=== PATIENT | female | born 1990 | race Caucasian/White ===

== ENCOUNTER 2018-11-19 08:54 | Inpatient (IN) ==
[2018-11-19] MEDS ORDERED: OXYTOCIN 30 UNITS/500 ML BAG IV PRN ×2 (09:10→18:26)
--- NOTE | 2018-11-19 09:24 | History & Physical Report ---
Date of Service November 19, 2018 Assessment & Plan (1) 40 weeks gestation of : fetus category one. allow expectant management for now. arom/pit if indicated. efw 8-9#, anticipate . (2) Elevated blood pressure affecting in third trimester, antepartum: I suspect pressures are elevated secondary to anxiety. They are slowly coming down. check labs. If pressures remain elevated, plan to treat. Will continue to monitor closely. History of Present Illness Chief Complaint: contractions Primary Care Provider: Radha Chavez DO Patient is a with iup at 40 weeks by lmp c/w first trimester ultrasound who presents to labor and delivery with increasing contractions. was last in the office. Patient notes no vb/lof. +fm. She admits to intermittent doll and some nausea. no vision changes, no ruq pain and improved swelling. complicated by proteinuria in the third trimester of no greater than +1. BPs have been excellent. labs--O+/ab-/pap nl/ri/rprnr/hiv-/hepb-/gc/ct-/gtt x 2 nl/gbs neg Patient obviously not taking control pills as per meds. 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
[2018-11-19 09:47] LABS: Hematocrit (blood only) 35.5 % (37-47); Hemoglobin 11.8 g/dL (12.0-16.0); Mean Corpuscular Volume 84.7 fL (80-100); RDW Coefficient of Variation 14.1 % (11.5-14.5); RDW Standard Deviation 43.3 fL (36.4-46.3); Red Blood Count 4.19 M/uL (4.2-5.4); White Blood Count 10.78 K/uL (4.8-10.8)
[2018-11-19 10:03] LABS: Mean Corpuscular Hgb Conc 33.2 g/dL (32-36); Mean Platelet Volume 13.4 fL (7.4-10.4); Platelet Count 139 K/uL (130-400); Platelet Estimate Normal (Normal)
[2018-11-19 10:17] LABS: Albumin Level 2.6 gm/dl (3.4-5.0); BUN Creatinine Ratio 13.7 (10-20); Calcium 8.5 mg/dl (8.5-10.1); Creatinine Clr Calc Pharmacy 137.7 ml/min; Est GFR (African American) 133.4; Est GFR (Non-African American) 115.1; Potassium 3.5 mmol/L (3.5-5.1)
[2018-11-19 10:20] LABS: Albumin Globulin Ratio 0.7 (0.9-2); Bilirubin,Total 0.8 mg/dl (0.2-1); Globulin 3.7 gm/dl (2.5-4.0); Total Protein 6.3 gm/dl (6.4-8.2)
--- NOTE | 2018-11-19 12:12 | Labor Progress Brief Note ---
Date of Service November 19, 2018 Subjective tolerating contractions and walking. no s/s of pet Assessment & Plan (1) Gestational hypertension affecting first : labs nl, continue to monitor closely (2) 40 weeks gestation of : check at 2pm and then likely arom. Physical Exam Constitutional: WD/WN, vitals as above bps 130-140/80-90 Genitourinary: cx--deferred toco--irregular efm--category one Results & Data Vital Signs (Past 12 Hours) Vital Signs Temp Pulse Resp BP 11/19/18 12:06 88 132/87 11/19/18 11:58 82 138/95 11/19/18 11:48 79 140/91 11/19/18 11:38 85 136/86 11/19/18 11:28 82 154/92 H 11/19/18 10:29 85 142/94 H 11/19/18 10:24 92 H 137/92 11/19/18 10:20 86 139/90 11/19/18 10:14 88 138/92 11/19/18 10:09 91 H 141/81 H 11/19/18 10:07 88 135/87 11/19/18 10:00 82 137/101 H 11/19/18 09:54 83 137/97 11/19/18 09:50 86 138/95 11/19/18 09:44 92 H 145/100 H 11/19/18 09:39 83 143/102 H 11/19/18 09:34 86 141/98 H 11/19/18 09:29 97 H 150/94 H 11/19/18 09:28 36.8 C 18 150/94 H 11/19/18 09:24 90 149/96 H 11/19/18 09:20 90 142/92 H 11/19/18 09:14 93 H 143/102 H 11/19/18 09:09 93 H 160/110 H 11/19/18 09:07 101 H 160/105 H 11/19/18 09:02 101 H 143/101 H 11/19/18 09:01 104 H 141/101 H
[2018-11-19] MEDS: LACTATED RINGER'S 1,000 ML IV PRN ×2 (14:18→15:09)
--- NOTE | 2018-11-19 14:19 | Labor Progress Brief Note ---
Date of Service November 19, 2018 Subjective noting some contractions, declines epidural at this point. Assessment & Plan (1) Gestational hypertension affecting first : continue to monitor pressures closely 130-150/80-102 (2) 40 weeks gestation of : continue expectant management. epidural on demand. anticipate . Physical Exam 2 Constitutional: WD/WN, vitals as above Genitourinary: cx--5-6/100/-2 arom--small amount of blood tinged fluid toco--q3-5 min efm--130s wtih mod variability, accels to 160s, no decels. Results & Data Vital Signs (Past 12 Hours) Vital Signs Temp Pulse Resp BP 11/19/18 14:11 96 H 146/102 H 11/19/18 14:09 92 H 142/101 H 11/19/18 14:08 90 145/103 H 11/19/18 14:04 36.4 C L 18 11/19/18 14:03 106 H 139/89 11/19/18 13:30 82 140/94 11/19/18 13:20 74 141/93 H 11/19/18 13:11 81 150/92 H 11/19/18 12:59 76 139/89 11/19/18 12:06 88 132/87 11/19/18 12:00 36.7 C 18 11/19/18 11:58 82 138/95 11/19/18 11:48 79 140/91 11/19/18 11:38 85 136/86 11/19/18 11:28 82 154/92 H 11/19/18 10:29 85 142/94 H 11/19/18 10:24 92 H 137/92 11/19/18 10:20 86 139/90 11/19/18 10:14 88 138/92 11/19/18 10:09 91 H 141/81 H 11/19/18 10:07 88 135/87 11/19/18 10:00 82 137/101 H 11/19/18 09:54 83 137/97 11/19/18 09:50 86 138/95 11/19/18 09:44 92 H 145/100 H 11/19/18 09:39 83 143/102 H 11/19/18 09:34 86 141/98 H 11/19/18 09:29 97 H 150/94 H 06/24/19 09:28 36.8 C 18 150/94 H 11/19/18 09:24 90 149/96 H 11/19/18 09:20 90 142/92 H 11/19/18 09:14 93 H 143/102 H 11/19/18 09:09 93 H 160/110 H 11/19/18 09:07 101 H 160/105 H 11/19/18 09:02 101 H 143/101 H 11/19/18 09:01 104 H 141/101 H
[2018-11-19] MEDS ORDERED: LABETALOL HCL IV 5 MG/ML 20ML IV STA (14:41)
[2018-11-19] MEDS ORDERED: ePHEDrine sulfate 50 MG/ML AMP ONE (14:43)
[2018-11-19] MEDS ORDERED: BUPIVACAINE 0.25% 30 ML VIAL ONE (14:43)
[2018-11-19] MEDS ORDERED: fentaNYL citrate 100 MCG/2 ML VIAL ONE (14:44)
[2018-11-19] MEDS ORDERED: fentaNYL 2MCG/ML ROPIV 1.25MG/ML 100 ML BAG EPI ONE (14:44)
--- NOTE | 2018-11-19 14:44 | Communication Note ---
Date of Service: November 19, 2018 After arom, patient quickly became very painful and her pressures have elevated likely in response to this. Will treat with labetolol and get epidural. Then will reevaluate.
--- NOTE | 2018-11-19 15:50 | Anesthesiology Consultation ---
Date of Service November 19, 2018 Assessment & Plan (1) Encounter for pre-operative examination: Chart Review Chart Review: Patient NOT seen in Pre Admission Testing and Acceptable Risk for Labor Epidural Consults Requested none ASA ASA2 Proposed Anesthesia Anesthesia Type: Labor Epidural History Height/Weight Height: 5 ft 8 in Weight: 90.718 kg Allergies Allergy/AdvReac Type Severity Reaction Status Date / Time No Known Allergies Allergy Verified 11/19/18 09:32 Medications Home Medications Medication Instructions Recorded Confirmed Last Taken vit-iron fum-folic ac 1 tab PO DAILY 11/19/18 11/19/18 11/19/18 07:00 [ Vitamin] Active Medications Generic Name Dose Route Start Last Admin Trade Name Freq PRN Reason Stop Dose Admin Lactated Ringer's 1,000 mls @ 125 mls/hr 11/19/18 09:10 11/19/18 15:09 Lr IV 11/21/18 09:09 999 mls/hr .Q8H PRN Administration L&D Protocol Protocol Past Medical History Medical History History of varicella Kidney stones Pyelonephritis Past Surgical History Surgical History [place] teeth extracted Social History Smoking Status: Never smoker Do You Dip or Chew Tobacco: No Hx Alcohol Use: No Hx Substance Use: No substance use type: does not use Physical Exam Vital Signs Last Vital Signs Temp 36.4 C L 11/19/18 14:04 Pulse 78 11/19/18 15:45 Resp 18 11/19/18 14:04 BP 127/89 11/19/18 15:45 Pulse Ox 98 11/19/18 15:42 Testing Laboratory Results 11/19/18 09:23 11/19/18 09:23
[2018-11-19] MEDS ORDERED: ONDANSETRON INJ 2 MG/ML 2 ML VIAL IV PRN (15:54)
[2018-11-19] MEDS ORDERED: NALBUPHINE HCL INJ 10 MG/ML AMP IV PRN (15:54)
[2018-11-19] MEDS ORDERED: NALOXONE HCL 0.4 MG/1 ML VIAL/CARP IV PRN (15:54)
[2018-11-19] MEDS ORDERED: DiphenhydrAMINE HCL 50 MG/ML VIAL IV PRN (15:54)
[2018-11-19] MEDS ORDERED: ePHEDrine sulfate 50 MG/ML AMP IV PRN (15:54)
[2018-11-19] MEDS ORDERED: NALOXONE HCL 1 MG in SODIUM CHLORIDE 0.9% 1000ML 1,000 ML IV PRN (15:54)
[2018-11-19] MEDS ORDERED: fentaNYL 2MCG/ML ROPIV 1.25MG/ML 100 ML BAG EPI PRN (15:54)
[2018-11-19] MEDS ORDERED: ACETAMINOPHEN 325 MG TAB PO PRN (18:09)
[2018-11-19] MEDS ORDERED: OXYCODONE/ACETAMINOPHEN 5mg/325mg TAB PO PRN (18:09)
[2018-11-19] MEDS ORDERED: HYDROCORTISONE ACETATE 25 MG SUPP PR PRN (18:26)
[2018-11-19] MEDS ORDERED: BISACODYL 10 MG SUPP PR PRN (18:26)
[2018-11-19] MEDS ORDERED: SUPERCREAM 0.870% 15 GM JAR EXT PRN (18:26)
[2018-11-19] MEDS ORDERED: DIPHTHERIA/TETANUS/PERTUSSIS 0.5 ML SYR/VIAL IM ONE (18:26)
[2018-11-19] MEDS ORDERED: BENZOCAINE 20% AER SPR 82.5 GM CAN EXT PRN (18:26)
--- NOTE | 2018-11-19 19:58 | Delivery Summary ---
DATE OF OPERATION: 11/19/2018 DATE OF DELIVERY: 11/19/2018 PREOPERATIVE DIAGNOSES: 1. Intrauterine at 40 and 0/7 weeks. 2. Gestational hypertension. 3. Normal labor. POSTOPERATIVE DIAGNOSES: 1. Intrauterine at 40 and 0/7 weeks. 2. Gestational hypertension. 3. Normal labor. PROCEDURES: 1. Amniotomy for clear fluid. 2. Epidural anesthetic. 3. Normal spontaneous vaginal delivery. 4. Right labial laceration and small vaginal laceration with repair. SURGEON: Janice Esposito MD ANESTHESIA: Epidural. ESTIMATED BLOOD LOSS: 350 mL. PROCEDURE: The patient presented to labor and delivery in early active labor. She did have some elevated blood pressures, but that did not meet the criteria for severe, but likely gestational hypertension and so she was kept. She walked for a little while, did not make any change and then had an amniotomy for clear fluid. Her pain became very severe and she had a blood pressure of 177/107. I suspect this was secondary to acute pain, but she was treated nonetheless with 10 mg of labetalol. She received her epidural and then her pressures were good after that. She progressed to complete-complete and +2 station. She pushed effectively to deliver a viable male in [place] presentation. There was no nuchal cord. The nose and mouth were bulb suctioned and the rest of the was then delivered without difficulty. The was wiped down. The nose and mouth were bulb suctioned. The infant was placed on maternal abdomen for drying and attention. Cord blood was obtained for donation. Placenta delivered spontaneously intact with a 3-vessel cord. Cervix, sulci, rectum, and perineum were examined and found to be intact. A small vaginal laceration was repaired as well as a right labial laceration with 4-0 Vicryl in interrupted sutures. Local infiltration of 1% lidocaine without epinephrine was used to assist with this repair. Hemostasis obtained with dilute Pitocin and fundal massage. Apgars were pending. Weight pending. Mother and baby doing well at the end of the delivery. I attest to the content of the Intraoperative Record and any orders documented therein. Any exception s are noted below.
[2018-11-20] MEDS: DOCUSATE SODIUM 100 MG CAP PO SCH ×3 (00:30→20:38)
[2018-11-20 06:18] LABS: Hematocrit (blood only) 32.1 % (37-47); Hemoglobin 10.8 g/dL (12.0-16.0)
--- NOTE | 2018-11-20 06:37 | Obstetrical Progress Note ---
Date of Service <Angelo TieraLynne Gonzales, - Last Filed: 11/20/18 06:37> November 20, 2018 Assessment & Plan <Angelo Gonzales DO - Last Filed: 11/20/18 06:37> (1) (spontaneous vaginal delivery): -vital signs reviewed and WNL -last Hgb 11.8 -Blood type: O+, GBS-, Rubella Immune -pt doing well clinically -encourage ambulation, monitor and control pain with motrin tylenol, cont regular diet, monitor lochia -cont encourage breast feeding -anticipate d/c tomorrow Subjective <Angelo TieraLynne Gonzales - Last Filed: 11/20/18 06:37> 28 y/o PPD1 found in bed this morning in NAD. Reports no acute overnight events. Pt states that she has no pain other than appropriate soreness. Tolerating PO intake without N/V. Able to ambulate without issue. She is breast feeding without issue. No issues with voiding, no BM yet but passing gas. No other acute concerns or complaints. Review of Systems All systems reviewed & are unremarkable except as noted in HPI & below Physical Exam <Angelo Gonzales DO - Last Filed: 11/20/18 06:37> Constitutional WD/WN, vitals as above Respiratory normal respiratory effort, lungs clear to auscultation Cardiovascular RRR, no murmur, no edema Gastrointestinal (Abdomen) mild abd tenderness Fundus not palpated, please see attending findings Skin no rashes, warm and dry Psychiatric A+Ox3, euthymic affect Lymphatic no LE swelling, no calf tenderness Results & Data <Angelo Gonzales, - Last Filed: 11/20/18 06:37> Vital Signs (Past 12 Hours) Vital Signs Temp Pulse Pulse Resp BP BP Pulse Ox 11/20/18 03:25 36.7 C 78 16 136/92 96 11/19/18 23:38 37.0 C 82 18 132/83 95 11/19/18 21:08 37.0 C 90 18 137/90 98 11/19/18 20:10 100 H 143/80 H 11/19/18 20:00 18 11/19/18 19:55 89 131/76 11/19/18 19:40 83 142/80 H 06/24/19 19:25 86 138/73 11/19/18 19:10 86 144/90 H 11/19/18 19:00 36.8 C 16 11/19/18 18:55 89 132/87 11/19/18 18:45 18 11/19/18 18:40 92 H 126/76 Laboratory Results Laboratory Results - last 24 hr 11/19/18 11/19/18 11/20/18 09:23 09:23 05:55 WBC 10.78 RBC 4.19 L Hgb 11.8 L 10.8 L Hct 35.5 L 32.1 L MCV 84.7 MCH 28.2 MCHC 33.2 RDW Std Deviation 43.3 RDW Coeff of Sander 14.1 Plt Count 139 MPV 13.4 H Platelet Estimate Normal Sodium 137 Potassium 3.5 Chloride 107 Carbon Dioxide 21 Anion Gap 9.0 BUN 10 Creatinine 0.71 Est Cr Clr Drug Dosing 137.7 Est GFR ( Amer) 133.4 Est GFR (Non-Af Amer) 115.1 BUN/Creatinine Ratio 13.7 Glucose 98 Calcium 8.5 Total Bilirubin 0.8 AST 17 ALT 13 Alkaline Phosphatase 193 H Total Protein 6.3 L Albumin 2.6 L Globulin 3.7 Albumin/Globulin Ratio 0.7 L Medications Administered Current Inpatient Medications Acetaminophen (Tylenol) 650 mg PO Q6H PRN PRN Reason: Pain/JARRETT/Fever Stop: 12/19/18 18:08 Benzocaine (Dermoplast Pain Relieving [place]) 1 appln EXT PRN PRN PRN Reason: Perineal Discomfort Stop: 12/19/18 18:25 Last Admin: 11/20/18 00:31 Dose: 1 appln Documented by: Bisacodyl (Dulcolax) 5 mg PO 1999 [facility] Stop: 11/20/18 20:01 Bisacodyl (Dulcolax) 10 mg OK DAILY PRN PRN Reason: No BM on 2nd post- day Stop: 12/19/18 18:25 Cocaine HCl (Supercream 0.870%) 1 gm EXT BID PRN PRN Reason: Hemorrhoidal Inflammation Stop: 12/03/18 18:25 Docusate Sodium (Colace) 100 mg PO BID [facility] Stop: 12/19/18 20:59 Last Admin: 11/20/18 00:30 Dose: Not Given Documented by: Hydrocortisone (Anusol Hc) 25 mg OK BID PRN PRN Reason: Hemorrhoidal Inflammation Stop: 12/19/18 18:25 Oxytocin (Pitocin) 30 units in 500 mls @ 333.333 mls/hr IV .Q1H30M PRN; Protocol PRN Reason: Bleeding Control Stop: 12/19/18 18:25 Last Titration: 11/19/18 19:03 Dose: Infused Documented by: Ibuprofen (Motrin) 600 mg PO Q4H PRN PRN Reason: Pain/JARRETT/Cramping/Fever Stop: 12/19/18 18:08 Oxycodone/Acetaminophen (Percocet 5mg/325mg) 1 tab PO Q4H PRN PRN Reason: Pain not relieved by... Stop: 12/03/18 18:08 Prenat Multivit/[place]/Iron/Folic Ac ( Vitamin) 1 tab PO QAM AGGIE Stop: 12/20/18 08:59 <Janice Esposito MD, FACOG - Last Filed: 11/20/18 07:47> Co-Signing Physician Notes Resident Physician Supervision Note: I interviewed and examined the patient. Discussed with Dr. Gonzales and agree with findings and plan as documented in the note. Any exceptions or clarifications are listed here: Doing well. BP are stable without s/s of pet. fundus firm about u. Routine pp care. plan d/c tomorrow with f/u in one week for bp check. Documented By: Janice Esposito MD, FACOG Resident Activity Tracking <Angelo Gonzales, - Last Filed: 11/20/18 06:37> Resident Involvement: Resident Care Provided Care Provided: OB Delivery
[2018-11-20] MEDS: PRENATAL VITAMIN 1 TAB PO SCH (08:45)
[2018-11-20] MEDS: IBUPROFEN 600 MG TAB PO PRN ×2 (08:45→16:54)
[2018-11-20] MEDS ORDERED: BISACODYL 5 MG TABEC PO SCH (20:00)
--- NOTE | 2018-11-21 06:11 | Obstetrical Progress Note ---
Date of Service <Angelo Gonzales DO - Last Filed: 11/21/18 06:11> November 21, 2018 Assessment & Plan <Angelo Gonzales DO - Last Filed: 11/21/18 06:11> (1) (spontaneous vaginal delivery): -vital signs reviewed and WNL -last Hgb 10.8 -Blood type: O+, GBS-, Rubella Immune -pt doing well clinically -encourage ambulation, monitor and control pain with motrin tylenol, cont regular diet, monitor lochia -cont encourage breast feeding -plan for d/c today -f/u one week in clinic for BP check Subjective <Angelo Gonzales DO - Last Filed: 11/21/18 06:11> 28 y/o PPD2 found in bed this morning in NAD. Reports no acute overnight events. Pt states that she has no pain other than appropriate soreness. Tolerating PO intake without N/V. Able to ambulate without issue. She is breast feeding without issue. No issues with voiding, no BM yet but passing gas. No other acute concerns or complaints. Pt ok with plan for d/c today. Review of Systems All systems reviewed & are unremarkable except as noted in HPI & below Physical Exam <Angelo Gonzales DO - Last Filed: 11/21/18 06:11> Constitutional WD/WN, vitals as above Respiratory normal respiratory effort, lungs clear to auscultation Cardiovascular RRR, no murmur, no edema Gastrointestinal (Abdomen) mild abd tenderness Fundus one below U, please correlate with attending findings Skin no rashes, warm and dry Psychiatric A+Ox3, euthymic affect Lymphatic no LE swelling, no calf tenderness Results & Data <Angelo Gonzales DO - Last Filed: 11/21/18 06:11> Vital Signs (Past 12 Hours) Vital Signs Temp Pulse Resp BP Pulse Ox 11/21/18 00:05 36.9 C 74 18 131/90 11/20/18 19:23 37.0 C 78 18 121/86 96 Laboratory Results Laboratory Results - last 24 hr 11/20/18 05:55 Hgb 10.8 L Hct 32.1 L Medications Administered Current Inpatient Medications Acetaminophen (Tylenol) 650 mg PO Q6H PRN PRN Reason: Pain/JARRETT/Fever Stop: 12/19/18 18:08 Benzocaine (Dermoplast Pain Relieving [place]) 1 appln EXT PRN PRN PRN Reason: Perineal Discomfort Stop: 12/19/18 18:25 Last Admin: 11/20/18 00:31 Dose: 1 appln Documented by: Bisacodyl (Dulcolax) 10 mg AR DAILY PRN PRN Reason: No BM on 2nd post- day Stop: 12/19/18 18:25 Cocaine HCl (Supercream 0.870%) 1 gm EXT BID PRN PRN Reason: Hemorrhoidal Inflammation Stop: 12/03/18 18:25 Docusate Sodium (Colace) 100 mg PO BID [facility] Stop: 12/19/18 20:59 Last Admin: 11/20/18 20:38 Dose: 100 mg Documented by: Hydrocortisone (Anusol Hc) 25 mg [place] BID PRN PRN Reason: Hemorrhoidal Inflammation Stop: 12/19/18 18:25 Oxytocin (Pitocin) 30 units in 500 mls @ 333.333 mls/hr IV .Q1H30M PRN; Protocol PRN Reason: Bleeding Control Stop: 12/19/18 18:25 Last Titration: 11/19/18 19:03 Dose: Infused Documented by: Ibuprofen (Motrin) 600 mg PO Q4H PRN PRN Reason: Pain/JARRETT/Cramping/Fever Stop: 12/19/18 18:08 Last Admin: 11/20/18 16:54 Dose: 600 mg Documented by: Oxycodone/Acetaminophen (Percocet 5mg/325mg) 1 tab PO Q4H PRN PRN Reason: Pain not relieved by... Stop: 12/03/18 18:08 Prenat Multivit/[place]/Iron/Folic Ac ( Vitamin) 1 tab PO QAM AGGIE Stop: 12/20/18 08:59 Last Admin: 11/20/18 08:45 Dose: 1 tab Documented by: <Rina French MD - Last Filed: 11/21/18 07:46> Co-Signing Physician Notes I have reviewed the resident's note and examined the patient myself, and agree with the note above. Resident Activity Tracking <Angelo Gonzales DO - Last Filed: 11/21/18 06:11> Resident Involvement: Resident Care Provided Care Provided: OB Delivery
[2018-11-21] MEDS: IBUPROFEN 600 MG TAB PO PRN (08:39)
[2018-11-21] MEDS: DOCUSATE SODIUM 100 MG CAP PO SCH (08:39)
[2018-11-21] MEDS: PRENATAL VITAMIN 1 TAB PO SCH (08:39)
--- NOTE | 2018-11-22 11:12 | Anesthesia Procedure Note ---
Date of Service November 22, 2018 Anesthesia Post Epidural Note Vital Signs Vital Signs: Temp Pulse Resp BP Pulse Ox 36.7 C 74 18 129/90 98 11/21/18 10:14 11/21/18 10:14 11/21/18 10:14 11/21/18 10:14 11/21/18 10:14 Pain Intensity Perineal: Pain Intensity: 3 Notes Mental Status: alert / awake / arousable Patient Amnestic to Procedure: Yes Nausea / Vomiting: adequately controlled Pain: adequately controlled Airway Patency, RR, SpO2: stable & adequate BP & HR: stable & adequate Hydration State: stable & adequate Neuraxial Anesthesia: was administered and sensory block resolved Anesthetic Complications: no major complications apparent and Pt Satisfied with anesthetic care Epidural: Removed without complications and With tip intact
== END 2018-11-21 13:45 | disposition home or self-care (01) | DRG 807 ==
LOC: OPB 08:54 → 4S1 08:56 → 4S2 20:40

== ENCOUNTER 2022-02-16 04:06 | Inpatient (IN) ==
[2022-02-16] MEDS ORDERED: OXYTOCIN 30 UNITS/500 ML BAG IV PRN ×2 (04:18→06:13)
[2022-02-16] MEDS ORDERED: LIDOCAINE 1% LOCAL 20 ML VIAL INFIL PRN (04:18)
[2022-02-16] MEDS: LACTATED RINGER'S 1,000 ML IV PRN ×2 (04:21→05:16)
--- NOTE | 2022-02-16 04:21 | History & Physical Report ---
Date of Service February 16, 2022 Assessment & Plan (1) Normal labor: Plan admit. fetus category one. will attempt epidural per patient desires. gbs negative. first pressure elevated and hx of ?ghtn. Check labs. Anticipate . Admission and Anticipated Discharge Date Admission Date: February 16, 2022 History of Present Illness Chief Complaint: contractions Primary Care Provider: Radha Chavez DO Patient is a 31yowf wtih iup at 41 weeks who presents with contractions. no lof/vb. +fm . Is on for postdates induction today. Was 4cm in the office earlier today. and Delivery Plans GHTN in prior asa at 12 weeks Has not had covid vaccination flu vaccine 07/06/21 OB Labs: Blood Type O Positive 07/06/21 A Antibody Screen NEGATIVE 07/06/21 Hemoglobin 11.9 g/dL (12.0-16.0) L 11/24/21 Hematocrit 36.2 % (37-47) L 11/24/21 Mean Corpuscular VolumeD 86.7 fL (80-100) 07/06/21 Platelet Count 239 K/uL (130-400) 07/06/21 Rubella IgG Antibody Immune (Immune) 07/06/21 Rapid Plasma Reagin Nonreactive (Nonreactive) 07/06/21 Hepatitis B Surface Antigen Neg (Neg) 07/06/21 Hepatitis C Antibody Neg (Neg) 07/06/21 HIV (1&2) Ab and P24 Ag, 4th Gener Neg (Neg) 07/06/21 Glucose 1 Hour 50 gm Load 135 mg/dl (70-130) H 11/24/21 OB Optional Labs: Chlamydia trachomatis RNA NOT DETECTED (NOT DETECTED) 07/06/21 Neisseria gonorrhoeae RNA NOT DETECTED (NOT DETECTED) 07/06/21 Labs Reviewed: declines cf/sma/genetics--akh gbs neg afp declined Allergies Allergy/AdvReac Type Severity Reaction Status Date / Time No Known Allergies Allergy Verified 02/16/22 04:18 Home Medications Medication Instructions Recorded Confirmed Type prenat.vits,carlos,[id number] 1 tab PO DAILY 02/16/21 02/16/22 History aspirin 81 mg capsule 81 mg PO DAILY 02/04/22 02/16/22 History Patient History Medical History Elevated blood pressure affecting in third trimester, antepartum Gestational hypertension affecting first History of varicella Kidney stones Pyelonephritis (spontaneous vaginal delivery) Surgical History [place] teeth extracted Family History Unknown Diabetes Hypertension Breast cancer Cervical cancer Social History Smoking Status: Never smoker Second Hand Exposure: No; Hx Alcohol Use: No Hx Substance Use: No Preferred Language: Welsh Communication Ability: Effective 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 Feels Safe at Home: Yes Assistive Devices: None OB History Past Pregnancies Del. Date GA wks Lbr Lgth wt Sex Type del Anes Place Del Prov ? Comment 11/19/18 40 8lb 5oz M Epidu [facility] Dr. Esposito No high bp during labor (? 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
[2022-02-16] MEDS ORDERED: fentaNYL citrate 100 MCG/2 ML VIAL ONE (04:35)
[2022-02-16] MEDS ORDERED: SODIUM CHLORIDE 0.9% INJ 10 ML VIAL ONE (04:35)
[2022-02-16] MEDS ORDERED: ePHEDrine sulfate 50 MG/ML AMP ONE (04:35)
[2022-02-16] MEDS ORDERED: BUPIVACAINE 0.25% 30 ML VIAL ONE (04:36)
[2022-02-16] MEDS ORDERED: fentaNYL 2MCG/ML ROPIVACAINE 1.25MG/ML 100 ML BAG EPI ONE (04:36)
[2022-02-16] MEDS ORDERED: LIDOCAINE 2%/EPINEPHRINE 1:200,000 20 ML SDV ONE (04:36)
[2022-02-16 04:39] LABS: Hematocrit (blood only) 38.4 % (34.1-44.9); Hemoglobin 12.8 g/dl (12.0-16.0); Mean Corpuscular Hgb Conc 33.3 g/dL (32.0-36.0); RDW Coefficient of Variation 13.9 % (11.5-14.5); RDW Standard Deviation 42.4 fL (36.4-46.3); Red Blood Count 4.57 M/uL (3.93-5.22); White Blood Count 10.72 K/ul (4.8-10.8)
[2022-02-16 04:50] LABS: Mean Platelet Volume 13.2 fL (9.4-12.3); Platelet Count 142 K/uL (130-400)
[2022-02-16 05:00] LABS: Albumin Globulin Ratio 1.2 (0.9-2); Albumin Level 3.4 gm/dl (3.4-5.0); BUN Creatinine Ratio 21.5 (10-20); Bilirubin,Total 0.8 mg/dl (0.2-1.0); Calcium 9.2 mg/dl (8.5-10.1); Creatinine Clr Calc Pharmacy 155.9 ml/min; Est GFR (African American) 136.2 ml/min; Est GFR (Non-African American) 117.5 ml/min; Globulin 2.9 gm/dl (2.5-4.0); Potassium 3.3 mmol/L (3.5-5.1); Total Protein 6.3 gm/dl (6.0-8.3)
[2022-02-16] MEDS ORDERED: NALOXONE HCL 1 MG in SODIUM CHLORIDE 0.9% 1000ML 1,000 ML IV PRN (05:06)
[2022-02-16] MEDS ORDERED: ePHEDrine sulfate 50 MG/ML AMP IV PRN (05:06)
[2022-02-16] MEDS ORDERED: fentaNYL 2MCG/ML ROPIVACAINE 1.25MG/ML 100 ML BAG EPI PRN (05:06)
[2022-02-16] MEDS ORDERED: diphenhydrAMINE 50 MG/ML VIAL IV PRN (05:06)
[2022-02-16] MEDS ORDERED: NALBUPHINE HCL INJ 10 MG/ML AMP IV PRN (05:06)
[2022-02-16] MEDS ORDERED: NALOXONE HCL 0.4 MG/1 ML VIAL/CARP IV PRN (05:06)
--- NOTE | 2022-02-16 05:06 | Anesthesiology Consultation ---
Date of Service February 16, 2022 Assessment & Plan (1) Encounter for pre-operative examination: Chart Review Chart Review: Acceptable Risk for Surgery and Patient NOT seen in Pre Admission Testing Consults Requested none History Height/Weight Height: 5 ft 9 in Weight: 99.337 kg Allergies Allergy/AdvReac Type Severity Reaction Status Date / Time No Known Allergies Allergy Verified 02/16/22 04:18 Medications Home Medications Medication Instructions Recorded Confirmed Last Taken prenat.vits,carlos,[id number] 1 tab PO DAILY 02/16/21 02/16/22 02/15/22 aspirin 81 mg capsule 81 mg PO DAILY 02/04/22 02/16/22 02/15/22 Active Medications Generic Name Dose Route Start Last Admin Trade Name Freq PRN Reason Stop Dose Admin Lactated Ringer's 1,000 mls @ 125 mls/hr 02/16/22 04:18 02/16/22 04:21 Lr IV 02/18/22 04:17 999 mls/hr .Q8H PRN Administration L&D Protocol Protocol Past Medical History Medical History Elevated blood pressure affecting in third trimester, antepartum Gestational hypertension affecting first History of varicella Kidney stones Pyelonephritis (spontaneous vaginal delivery) Past Family History Family History Unknown Diabetes Hypertension Breast cancer Cervical cancer Past Surgical History Surgical History [place] teeth extracted Social History Smoking Status: Never smoker Hx Alcohol Use: No Hx Substance Use: No substance use type: does not use Physical Exam Vital Signs Last Vital Signs Temp 97.7 F 02/16/22 04:20 Pulse 90 02/16/22 04:38 Resp 18 02/16/22 04:20 BP 142/90 H 02/16/22 04:38 O2 Del Method 02/16/22 04:20 Testing Laboratory Results 02/16/22 04:30 02/16/22 04:30
[2022-02-16] MEDS ORDERED: DIPHTHERIA/TETANUS/PERTUSSIS 0.5 ML SYR/VIAL IM ONE (06:13)
[2022-02-16] MEDS ORDERED: oxyCODONE/ACETAMINOPHEN 5mg/325mg TAB PO PRN (06:13)
[2022-02-16] MEDS ORDERED: ACETAMINOPHEN 325 MG TAB PO PRN (06:13)
[2022-02-16] MEDS ORDERED: HYDROCORTISONE ACETATE 25 MG SUPP PR PRN (06:13)
[2022-02-16] MEDS ORDERED: BENZOCAINE 20% AER SPR 82.5 GM CAN EXT PRN (06:13)
[2022-02-16] MEDS ORDERED: bisacodyL 10 MG SUPP PR PRN (06:13)
--- NOTE | 2022-02-16 06:16 | Delivery Summary ---
Vaginal Delivery Summary Date of Service February 16, 2022 Vaginal Delivery Summary and 1st Degree LAC Pre-operative Diagnosis: at 41 weeks active labor Post-operative Diagnosis: same Procedure: epidural first degree lac and repair EBL: 300cc Anesthesia: epidural Procedure: The patient presented to labor and delivery in active labor at 8cm. She got an epidural and then had srom. The patient pushed for 2 contractions to deliver a viable female infant in ganga position. The nose and mouth were bulb suctioned on the perineum and the rest of the was then delivered without difficulty. The baby was vigorous. The nose and mouth were again bulb suctioned and the infant was placed in the maternal abdomen for drying and attention. Cord was clamped and cut at one minute of life. Cord blood and segment obtained. Placenta delivered spontaneous, intact with a three vessel cord. Cervix/sulci/rectum were intact. A small first degree perineal laceration was repaired in the normal standard fashion. Hemostasis obtained with dilute pitocin and fundal massage. Apgars were 8/9. Mother and baby doing well at the end of the delivery. [facility] [place] Charge Delivery Type Details: and 1st Degree LAC
--- NOTE | 2022-02-16 07:20 | Anesthesia Procedure Note ---
Date of Service February 16, 2022 Anesthesia Post Epidural Note Vital Signs Vital Signs: Temp Pulse Resp BP Pulse Ox O2 Del Method 36.6 C 76 18 128/82 97 02/16/22 06:15 02/16/22 07:14 02/16/22 06:45 02/16/22 07:14 02/16/22 06:05 02/16/22 04:20 Pain Intensity Bilateral Abdomen: Pain Intensity: 7 Notes Mental Status: alert / awake / arousable Nausea / Vomiting: adequately controlled Pain: adequately controlled Airway Patency, RR, SpO2: stable & adequate BP & HR: stable & adequate Hydration State: stable & adequate Neuraxial Anesthesia: was administered and sensory block is resolving Anesthetic Complications: no major complications apparent and Pt Satisfied with anesthetic care Epidural: Removed without complications and With tip intact
[2022-02-16] MEDS: DOCUSATE SODIUM 100 MG CAP PO SCH ×2 (07:45→20:47)
[2022-02-16] MEDS: PRENATAL VITAMIN 1 TAB PO SCH (07:45)
[2022-02-16] MEDS: IBUPROFEN 600 MG TAB PO PRN (20:47)
--- NOTE | 2022-02-17 05:03 | Obstetrical Progress Note ---
Date of Service February 17, 2022 Assessment & Plan (1) Normal spontaneous vaginal delivery: Plan - Overall, feeling well and eating well today, wants to go home - feeding going well without concern - Urinating and passing gas appropriately - Ambulating well around the room - Pain controlled, currently taking ibuprofen prn - Routine PP care progressing well - Anticipate discharge today Admission and Anticipated Discharge Date Admission Date: February 16, 2022 Supervising Physician Co-Signing Physician Notes Resident Physician Supervision Note: I was present with Dr. Richmond during the history and exam. I discussed the case with the resident and agree with the findings and plan as documented in the not e. Any exceptions or clarifications are listed here: PPD#1 doing well, desires DC home. Documented By: Brooke Monsivais, DO Subjective Today 02/17: Patient is a 31 y/o female who is PPD #1 following delivery at 41w0d. Patient is feeling well overall today and is interested in going home. - Ambulation - around room without difficulty - Voiding/[place] - voiding independently without burning or pressure - Gas/Stool - passing gas, has not moved bowels - Diet - regular diet, without emesis or nausea - Lochia - diminishing, light-moderate amount - Feeding Type - q2-3 hours - Pain Level - 2/10 w/ ibuprofen Review of Systems - Denies fever, chills, sweats - Denies shortness of breath, difficulty breathing, chest pain, palpitations, chest pressure. - Denies breast pain. - Denies dysuria. - Endorses headache this morning, states this is normal for her when she is tired (BP wnl) - Denies changes in vision. Physical Exam Physical Exam: General: Alert, oriented. No acute distress. Cardiac: RRR, normal S1/S2, no murmurs/rubs/gallops. Respiratory: Non-labored, CTAB, no wheezes/rales/rhonchi. Symmetric chest rise. Abdomen: Soft, nontender, nondistended. Bowel sounds present. Uterus: Uterine fundus firm, palpable 2 cm below umbilicus. Lower Extremities: No lower extremity edema or swelling. No deep calf pain. Harlan's negative bilaterally. Results & Data ([facility]) Vital Signs (Past 12 Hours) Vital Signs Temp Pulse Resp BP Pulse Ox O2 Del Method 02/17/22 04:15 36.7 C 79 18 120/84 99 Room Air 02/16/22 23:30 36.8 C 83 18 125/80 98 Room Air 02/16/22 20:25 Room Air 02/16/22 20:25 36.8 C 86 18 123/83 98 Room Air Resident Activity Tracking Resident Involvement: Resident Care Provided Care Provided: OB Delivery
[2022-02-17] MEDS: IBUPROFEN 600 MG TAB PO PRN (05:54)
[2022-02-17 06:51] LABS: Hematocrit (blood only) 32.3 % (34.1-44.9); Hemoglobin 10.7 g/dl (12.0-16.0)
[2022-02-17] MEDS: PRENATAL VITAMIN 1 TAB PO SCH (08:27)
[2022-02-17] MEDS: DOCUSATE SODIUM 100 MG CAP PO SCH (08:27)
[2022-02-17] MEDS ORDERED: bisacodyL 5 MG TABEC PO SCH (20:00)
== END 2022-02-17 15:05 | disposition home or self-care (01) | DRG 807 ==
LOC: 4S1 04:06 → 4E2 09:21